=== PATIENT | male | born 1960 | race Caucasian/White ===

== ENCOUNTER 2017-01-06 20:09 | Emergency (ER) | payer BC ==
[~2017-01-06] VITALS: Ht 165.1 cm; Wt 70.2 kg
[~2017-01-06 20:09] MED LIST: ASPIR-LOW81 MG PO; CELEBREX200 MG PO; MOTRIN600 MG PO; NORVASC10 MG PO; NORVASC5 MG PO; PROTONIX40 MG PO
[2017-01-06 21:05] LABS: HEMATOCRIT 43.7 % (38.0-50.0); MCH 29.1 PG (29.0-34.0); MCHC 33.6 G/DL (30.0-36.0); MCV 86.4 FL (86-99); MEAN PLAT.VOLUME 9.7 uM^3 (9.0-12.4); PLATELET COUNT 250 K/uL (156-360); RBC DIS.WIDTH-CV 12.4 % (11.8-14.6); RBC DIS.WIDTH-SD 38.6 % (39-53); RED BLOOD COUNT 5.06 M/uL (4.00-5.50); WHITE BLOOD COUNT 9.9 K/uL (4.1-10.2)
[2017-01-06 21:25] LABS: TROP-I INTERPRETATION NEGATIVE; TROPONIN-I 0.01 ng/mL (0.0-0.30)
[2017-01-06 21:28] LABS: CHLORIDE 106 mEq/L (99-109); POTASSIUM 3.8 mEq/L (3.7-5.4); SODIUM 141 mEq/L (136-147)
[2017-01-06 21:30] LABS: GLUCOSE 89 mg/dL (70-99)
[2017-01-06 21:31] LABS: ANION GAP 9 MEQ/L (2-14)
[2017-01-06 21:34] LABS: GFR ESTIMATE (CALCULATED) > 59 mL/min/
[2017-01-06 21:35] LABS: UREA NITROGEN (BUN) 9 mg/dL (9-23)
[2017-01-06 22:28] LABS: TROP-I INTERPRETATION NEGATIVE; TROPONIN-I 0.02 ng/mL (0.0-0.30)
[2017-01-06 22:29] VITALS: BP 126/87
== END 2017-01-06 22:37 | disposition home or self-care (01) ==
LOC: EME 20:09
PROVIDERS: Emergency Medicine
DX: G45.9 Transient cerebral ischemic attack, unspecified (principal); I10 Essential (primary) hypertension; K21.9 Gastro-esophageal reflux disease without esophagitis; Z79.82 Long term (current) use of aspirin; F17.200 Nicotine dependence, unspecified, uncomplicated
CPT/HCPCS: 70450; 71020; 80048; 84484; 85027; 93005; 99281; 99285